=== PATIENT | male | born 1950 | race Caucasian/White ===

== ENCOUNTER 2023-03-17 10:46 | Outpatient (REF) | payer MEDICARE, OTHER, SELFPAY ==
--- NOTE | ~2023-03-17 | XR_ITS ---
EXAMINATION: XR CHEST CLINICAL INFORMATION: Chronic cough COMPARISON: None available. TECHNIQUE: 2 views of the chest were obtained. FINDINGS: No significant abnormality is noted involving the heart, lungs, mediastinum, bony thorax or soft tissues. There is a small oval density seen overlying the posterior aspect of the right ninth rib which appears be related to superimposition of 2 ribs and vascular structures. XR/XR chest 2V IMPRESSION: No acute disease.
== END 2023-03-17 10:47 | disposition home or self-care (01) ==
LOC: HO.HMGCX 10:46
PROVIDERS: PCP Internal Medicine; Visit Provider Nurse Practitioner Family
DX: R05.3 Chronic cough (principal); U09.9 Post COVID-19 condition, unspecified
CPT/HCPCS: 71046